=== PATIENT | female | born 1945 | race Caucasian/White ===

== ENCOUNTER → 2016-09-19 | Outpatient (CLI) | payer BC ==
[~2016-09-19] MED LIST: CHOL100010 PO; CLTP PO; CMD1 PO; CRDCD300 PO; CZR50 PO; FRRG PO; MULT-506 PO; OMEG10007 PO
--- NOTE | 2016-09-19 12:46 | MAMMOGRAPHY REPORT ---
BILATERAL DIGITAL SCREENING MAMMOGRAM WITH CAD: 09/19/2016 CLINICAL HISTORY: Routine screening. Patient has no complaints. TECHNIQUE: Current study was also evaluated with a Computer Aided Detection (CAD) system. Bilatera l CC and MLO views were obtained. COMPARISON: Comparison is made to exams dated: 09/16/2015 mammogram, 09/10/2014 mammogram, 09/09/2013 mammogram, 09/07/2011 mammogram, 09/06/2010 mammogram, and 09/08/2012 mammogram - [facility]. BREAST COMPOSITION: There are scattered areas of fibroglandular density in both breasts. FINDINGS: No suspicious masses, calcifications, or areas of architectural distortion are noted in e ither breast. There has been no significant interval change compared to prior exams. Mass with asso ciated coarse calcification in the left upper outer quadrant is stable and compatible with a benign degenerating fibroadenoma. Other scattered bilateral benign appearing calcifications are not signif icantly changed. Small benign appearing masses in the right upper inner quadrant and left lower inn er quadrant are stable. IMPRESSION: ACR BI-RADS CATEGORY 2: BENIGN There is no mammographic evidence of malignancy. A 1 year screening mammogram is recommended. The p atient will receive written notification of the results. Approximately 10% of breast cancers are not detected with mammography. A negative mammographic repor t should not delay biopsy if a clinically suggestive mass is present. Liz Hernandez M.D. ah/:09/19/2016 09:00:59 Parts Salesman: Lara Cardona, [facility] letter sent: Normal 1/2 BI-RADS Code: ACR BI-RADS Category 2: Benign
== END | disposition home or self-care (01) ==
LOC: C.MAMM 08:38
PROVIDERS: ATTEND Obstetrics & Gynecology
DX: Z12.31 Encounter for screening mammogram for malignant neoplasm of breast (principal)

== ENCOUNTER → 2017-03-01 | Outpatient (CLI) | payer BC ==
--- NOTE | 2017-03-01 13:34 | DIAGNOSTIC IMAGING REPORT ---
CHEST 2 VIEWS ROUTINE HISTORY:72 [id number] Cough COMPARISON: Chest CT 10/24/2015, chest radiographs 09/24/2015 TECHNIQUE: Frontal and lateral views of the chest FINDINGS: Cardiomediastinal and hilar silhouettes are within normal limits. There is no pneumothorax, pleural effusion, focal airspace consolidation or overt pulmonary edema. Tortuosity of the descending thoracic aorta is redemonstrated. Endplate degenerative changes are seen throughout the spine. There is convex right curvature of the lower thoracic spine, unchanged. IMPRESSION: No acute cardiopulmonary process. The above report was generated using voice recognition software. It may contain grammatical, syntax or spelling errors. Electronically signed by: Marc Veloz M.D. 03/01/2017 1:33 PM Dictated Date/Time: 03/01/2017 1:32 PM
== END | disposition home or self-care (01) ==
LOC: C.RADBC 12:42
PROVIDERS: ATTEND Physician Assistant
DX: R05 Cough (principal)

== ENCOUNTER → 2017-05-27 | Outpatient (CLI) | payer BC ==
[2017-05-27 14:19] LABS: ALT/SGPT 24 U/L (12-78); BLOOD UREA NITROGEN 19 mg/dl (7-18); BUN/CREATININE RATIO 22.9 (10-20); CALCIUM 9.7 mg/dl (8.5-10.1); CARBON DIOXIDE 28 mmol/L (21-32); CHLORIDE 103 mmol/L (98-107); CREATININE 0.83 mg/dl (0.60-1.20); GLUCOSE 98 mg/dl (70-99); POTASSIUM 4.2 mmol/L (3.5-5.1); SODIUM 140 mmol/L (136-145)
[2017-05-27 15:16] LABS: ALB/GLOB RATIO 0.8 (0.9-2); ALKALINE PHOSPHATASE 72 U/L (45-117); AST/SGOT 19 U/L (15-37); CHOLESTEROL 226 mg/dl (0-200); CHOLESTEROL/HDL RATIO 4.4; HDL CHOLESTEROL 51 mg/dl; LDL CHOLESTEROL CALCULATED 142 mg/dl; THYROID STIMULATING HORMONE 0.773 uIu/ml (0.300-4.500); TRIGLYCERIDES 163 mg/dl (0-150); VERY LOW DENSITY LIPOPROT CALC 33 mg/dl
== END | disposition home or self-care (01) ==
LOC: C.LABBC 10:57
PROVIDERS: ATTEND Physician Assistant Medical
DX: E78.00 Pure hypercholesterolemia, unspecified (principal); I10 Essential (primary) hypertension

== ENCOUNTER → 2017-09-23 | Outpatient (CLI) | payer BC ==
--- NOTE | 2017-09-24 13:29 | MAMMOGRAPHY REPORT ---
BILATERAL DIGITAL SCREENING MAMMOGRAM TOMOSYNTHESIS WITH CAD: 09/23/2017 CLINICAL HISTORY: Routine screening. TECHNIQUE: Breast tomosynthesis in addition to standard 2D mammography was performed. Current study was also evaluated with a Computer Aided Detection (CAD) system. COMPARISON: Comparison is made to exams dated: 09/19/2016 mammogram, 09/16/2015 mammogram, 09/10/2014 ma mmogram, 09/09/2013 mammogram, 09/08/2012 mammogram, and 09/07/2011 mammogram - [facility]ter. BREAST COMPOSITION: There are scattered areas of fibroglandular density in both breasts. FINDINGS: A linear scar marker overlies the lateral left breast, denoting an area of prior surgery. There are stable bilateral circumscribed benign masses. Scattered benign-appearing calcifications. No suspicious mass, architectural distortion or cluster of microcalcifications is seen. IMPRESSION: ACR BI-RADS CATEGORY 1: NEGATIVE There is no mammographic evidence of malignancy. A 1 year screening mammogram is recommended. The pa tient will receive written notification of the results. Approximately 10% of breast cancers are not detected with mammography. A negative mammographic report should not delay biopsy if a clinically suggestive mass is present. Christi Kaur M.D. ay/:09/23/2017 16:04:19 Prosthetic Aides Teacher: Khoa TOUSSAINT)(Lenore), [facility] letter sent: Normal 1/2 BI-RADS Code: ACR BI-RADS Category 1: Negative
== END | disposition home or self-care (01) ==
LOC: C.MAMM 09:53
PROVIDERS: ATTEND Obstetrics & Gynecology
DX: Z12.31 Encounter for screening mammogram for malignant neoplasm of breast (principal)

== ENCOUNTER → 2017-11-13 | Outpatient (CLI) | payer BC | END | disposition home or self-care (01) | LOC: C.LAB1850 11:59 | PROVIDERS: ATTEND Nurse Practitioner Adult Health | DX: J02.9 Acute pharyngitis, unspecified (principal); Z20.818 Contact with and (suspected) exposure to other bacterial communicable diseases ==

== ENCOUNTER → 2018-04-01 | Outpatient (CLI) | payer BC | END | disposition home or self-care (01) | LOC: C.LABBC 10:13 | PROVIDERS: ATTEND Nurse Practitioner Adult Health | DX: R39.15 Urgency of urination (principal); R35.0 Frequency of micturition; R30.9 Painful micturition, unspecified ==

== ENCOUNTER 2021-10-10 10:25 | Observation (INO) ==
--- NOTE | 2021-08-16 12:01 | PAT Medication Instructions ---
Medication Instructions Date of Service August 16, 2021 Home Medications cholecalciferol (vitamin D3) 50 mcg (2,000 unit) capsule 2,000 units PO QAM multivitamin (Multiple Vitamins) 1 tab PO QAM cyclosporine 0.05 % eye drops (Restasis MultiDose) 1 drp OPHTHALMIC (EYE) QAM acetaminophen 500 mg oral powder packet (Tylenol Extra Strength) 1,000 mg PO Q6H PRN meloxicam 7.5 mg tablet 15 mg PO BID omega 3-dez-smu-fish oil 1,200 mg (144 mg-216 mg) capsule (Fish Oil) 1 cap PO QAM telmisartan 40 mg tablet 40 mg PO QAM ASK your surgeon for instructions meloxicam 7.5 mg tablet 15 mg PO BID STOP taking 2 weeks before surgery omega 8-zgv-yfa-fish oil 1,200 mg (144 mg-216 mg) capsule (Fish Oil) 1 cap PO QAM DO NOT take the morning of surgery cholecalciferol (vitamin D3) 50 mcg (2,000 unit) capsule 2,000 units PO QAM multivitamin (Multiple Vitamins) 1 tab PO QAM telmisartan 40 mg tablet 40 mg PO QAM Take morning of surgery With a small sip of water, OTHERWISE NOTHING TO EAT OR DRINK AFTER MIDNIGHT: acetaminophen 500 mg oral powder packet (Tylenol Extra Strength) 1,000 mg PO Q6H PRN(okay to take up to 4 hours prior to surgery if needed). cyclosporine 0.05 % eye drops (Restasis MultiDose) 1 drp OPHTHALMIC (EYE) QAM Take evening before surgery acetaminophen 500 mg oral powder packet (Tylenol Extra Strength) 1,000 mg PO Q6H PRN(if needed) Other Notes If you have any questions please call us at [phone] or [phone] or [phone] or [phone]
--- NOTE | 2021-08-28 13:38 | Anesthesiology Consultation ---
Date of Service August 28, 2021 Assessment & Plan (1) Encounter for pre-operative examination: - AAA in records: listed in PMHx at brain and spine surgery consult note, no additional records or imaging. Optimization note completed to be faxed to PCP, awaiting response. Will discuss standard outpatient joint eligibility with anesthesiologist pending PCP response. - COVID screening: Per assessment on 08/28/2021: Travel screen negative, no known COVID-19 positive contacts or current COVID-19 related symptoms in past 2 weeks. Patient vaccinated. Surgeon arranging preop COVID testing, scheduled 10/06/2021 [facility]. Awaiting results. Chart Review Chart Review: Pending: Refer to Additional Notes / Consult section and Patient seen in Pre Admission Testing Teaching & Discussion Pre-Anesthesia Teaching/Discussion Notes: Instructed NPO after midnight before surgery, except medications with 15 cc of water. Medication instructions provided according to the PAT guidelines. History Surgery Operation Date: 10/10/21 07:00 Proposed Procedures p Right Total Hip Replacement - Tha Francis MD Height/Weight Height: 5 ft 3 in Weight: 112.4 kg Allergies Allergy/AdvReac Type Severity Reaction Status Date / Time atorvastatin [From Lipitor] Allergy Mild myalgias Verified 08/15/21 14:20 simvastatin [From Zocor] Allergy Mild muscle Verified 08/15/21 14:20 aches Medications Home Medications Medication Instructions Recorded Confirmed Last Taken cholecalciferol (vitamin D3) 50 2,000 units PO QAM 02/12/19 08/15/21 03/31/19 06:30 mcg (2,000 unit) capsule multivitamin (Multiple Vitamins) 1 tab PO QAM 02/12/19 08/15/21 04/01/19 07:00 cyclosporine 0.05 % eye drops 1 drp OPHTHALMIC (EYE) QAM 05/25/21 08/15/21 Unknown (Restasis MultiDose) acetaminophen 500 mg oral powder 1,000 mg PO Q6H PRN ea 07/12/21 08/15/21 Unknown packet (Tylenol Extra Strength) meloxicam 7.5 mg tablet 15 mg PO BID tab 07/12/21 08/15/21 Unknown omega 5-avd-rng-fish oil 1,200 mg 1 cap PO QAM 08/15/21 08/15/21 Unknown (144 mg-216 mg) capsule (Fish Oil) telmisartan 40 mg tablet 40 mg PO QAM 08/15/21 08/15/21 Unknown Past Medical History Medical History (Updated 08/28/21 @ 15:36 by Dominique Fontanez PA-C) Benign essential hypertension controlled, stable per pt Diverticulosis denies diverticulitis Hypercholesterolemia Impaired fasting glucose glucose 92 08/2021 pre-op labs Lumbar radiculopathy Lyme disease chronic myalgia Osteoarthritis Postlaminectomy syndrome of lumbosacral region Sacroiliac joint pain Scoliosis Spinal stenosis Patient denies h/o stroke, seizures, heart attack, heart failure, DM, blood clots or blood transfusions. Exercise / Class Metabolic Activity III < 4 Walking/Shop/Light housework (denies CP or SOB) Past Family History Family History Sister Family history of diabetes mellitus Breast cancer Family/Other Family history of diabetes mellitus cousins Father Hypertension Myocardial infarction Brother Prostate cancer X2 Mother Stroke Other No family history of adverse response to anesthesia Denies family history of Ovarian cancer Lung cancer Colorectal cancer Past Surgical History Surgical History (Updated 08/28/21 @ 13:44 by Dominique Fontanez PA-C) History of bilateral tubal ligation History of biopsy on face--persistent erythema after cold sore--bx demonstrated cellulitis--treated with resolution; has standing Valtrex prescription History of bunionectomy of left great toe History of colonoscopy AGE 70 History of laminectomy L4-S1 WITH FUSION END OF FEBRUARY 2020 [facility] History of tooth extraction with dental implant History of total left hip replacement History of total right knee replacement (TKR) Hx of left breast biopsy benign Delgado's neuroma of left foot removed Past Anesthesia History No Hx of Anesthesia Complications and No Family Hx of Anesthesia Complications History of PONV No Hx of PONV and Hx of Motion Sickness Social History Smoking Status: Never smoker Do You Dip or Chew Tobacco: No Hx Alcohol Use: Yes Alcohol type: hard liquor alcohol intake frequency: 0-2 drinks per day Alcohol Intake Frequency Comment: STOPPED DRINKING 06/2021 Hx Substance Use: No substance use type: does not use Review of Systems Patient denies chest pain, shortness of breath, dyspnea on exertion, snoring, witnessed apneas, reflux, fever, chills, cough, wheezing, or palpitations. Physical Exam Vital Signs Vitals BP 124/75 P 95 TEMP 98.3 SP02 96% on RA RESP 17 Physical Full cervical extension range of motion without pain Full TMJ range of motion TMD 3.5 finger breaths Mallampati Score 2 Dentition: intact, one missing tooth right upper back; several implants-right upper side, permanent bridge right lower side; denies chipped or loose teeth Lungs: normal respiratory effort. Clear throughout to auscultation, no adventitious breath sounds Cardiac: regular rate and rhythm, no murmurs noted Carotid arteries: negative bruit bilat Extremities: no distal extremity edema Lab Results Anesthesia Preop Results Results Anesthesia Widget: WBC 5.88 K/uL (4.8-10.8) 08/28/21 Hgb 12.8 g/dL (12.0-16.0) 08/28/21 Hct 39.3 % (37-47) 08/28/21 Plt 187 K/uL (130-400) 08/28/21 Na 138 mmol/L (136-145) 08/28/21 K 4.6 mmol/L (3.5-5.1) 08/28/21 Cl 106 mmol/L (98-107) 08/28/21 CO2 26 mmol/L (21-32) 08/28/21 BUN 22 mg/dl (7-18) H 08/28/21 Creat 0.92 mg/dl (0.6-1.2) 08/28/21 Glucose Level 92 mg/dl (70-99) 08/28/21 PT 9.7 Seconds (9.0-12.0) 08/28/21 PTT 26.2 Seconds (21.0-31.0) 08/28/21 INR 1.0 (0.9-1.1) 08/28/21 Blood Type B Positive 08/28/21 Antibody Screen NEGATIVE 08/28/21 Testing Electrocardiogram Date: 08/25/21 Normal sinus rhythm, rate 88 bpm. Chest X-Ray Date: 08/28/21 No acute cardiopulmonary findings.
--- NOTE | 2021-10-07 11:17 | History and Physical Report ---
DATE OF ADMISSION: 10/10/2021. CHIEF COMPLAINT: Right hip and leg pain. HISTORY OF PRESENT ILLNESS: The patient is a 76-year-old female well known to me from a previous lef t hip replacement done in 2011 and a right knee replacement done in 2009. She comes now with right h ip and leg and groin pain. She has also had a pretty extensive back history and relatively recently had a pretty extensive back fusion done from L3-S1 by her neurosurgeon. This helped her some, but ov er the past year, she developed increased pain and discomfort in her right hip, groin and thigh-high area. Pain has become more disabling. She limps more as the day goes on. X-ray showed advanced hip arthritis. She is having trouble maintaining an active lifestyle. She has been using a cane and a walker to get around as a result. She would like to have her right hip fixed. PAST MEDICAL HISTORY: Includes: 1. Hypertension. 2. Obesity with BMI of 44. 3. Spinal stenosis/scoliosis. 4. Elevated cholesterol. PAST SURGICAL HISTORY: Includes: 1. Bunion surgery. 2. Left hip replacement done on 02/28/2012. 3. Right knee replacement done on 03/31/2010. 4. L3-S1 decompression and fusion 03/17/2020. ALLERGIES: None. CURRENT MEDICATIONS: Include: 1. Telmisartan 40 mg. 2. Multivitamins. 3. Vitamin D. 4. Restasis eye drops. 5. Meloxicam. SOCIAL HISTORY: A 76-year-old female. She is . She is retired. Does not smoke. Occasional alcohol intake. FAMILY HISTORY: Noncontributory. REVIEW OF SYSTEMS: Significant for some obesity. Denies any chest pain or shortness of breath. No history of DVT or PE. No known bleeding problems. PHYSICAL EXAMINATION: GENERAL: Shows a pleasant middle-aged female. Looks to be in reasonably good health. HEENT: Benign. NECK: Supple. No lymphadenopathy. LUNGS: Clear to auscultation. HEART: Regular rate and rhythm. ABDOMEN: Soft, nontender, nondistended. EXTREMITIES: Grossly neurovascularly intact except as follows. Examination of the right hip and leg reveals the patient walks with use of a walker. Leg lengths arnulfo ear pretty equal. She has limited hip motion and pain with any type of hip motion. Internal rotatio n to neutral at best. Negative straight leg raise. No knee effusion. X-RAYS: X-rays of the right hip were reviewed. It shows advanced right hip DJD. She has complete l oss of her superior joint space. Not a lot of osteophyte formation. She has got gnng-lr-csbi diseas e. She has got evidence of the previous lumbar spine surgery as well and some scoliosis above that l evel. ASSESSMENT: A 76-year-old white female with a history of multiple orthopedic procedures in the past including left hip replacement, right knee replacement in pretty extensive spine surgery with persist ent right leg pain consistent with an advanced hip arthritis. She is debilitated by this and would l bob to have this fixed. She has failed conservative measures. PLAN: We will take her to the operating room and do right total hip replacement. The risks and bene fits of this procedure were explained to the patient and include, but not limited to DVT, PE, , infection, neurological injury, vascular injury, bleeding problem, pain, limited range of motion, sti ffness, failure to relieve her symptoms, incomplete relief of symptoms, need for further surgery in t he future, fracture, leg length inequality, nerve palsy, etc. The patient understands and desires to proceed. Informed consent was obtained. With her back surgery, she is at increased risk for instability and dislocation. We will try and max imize her stability with a large head and maybe a little bit more anteversion of the acetabular cup. She will have to hold her meloxicam 10 days preop. She is planning to be [facility]. Job ID: [id number]
[~2021-10-10 10:25] MED LIST changes: +BUPIVACAINE 0.5 % 5 MG/1 ML PF 10ML VIAL ONE; -CHOL100010 PO; -CLTP PO; -CMD1 PO; -CRDCD300 PO; -CZR50 PO; -FRRG PO; +LR 500ML BOLUS, THEN 15ML/HR IV SCH; +LR 60ML/HR IV SCH; -MULT-506 PO; -OMEG10007 PO; +ceFAZolin 2000MG 2,000 MG/15 ML SYR IV SCH
--- NOTE | 2021-10-10 11:34 | History & Physical Bridge Note ---
Date of Service October 10, 2021 History & Physical Bridge Note I have examined the patient, reviewed the History & Physical and in the interval since the performance of the History & Physical I have noted the following changes of clinical significance: no changes noted
[2021-10-10] MEDS ORDERED: METOCLOPRAMIDE HCL 10 MG TABLET ONE (11:50)
[2021-10-10] MEDS ORDERED: ACETAMINOPHEN 500 MG TAB ONE (11:50)
[2021-10-10] MEDS ORDERED: dexAMETHasone 4 MG TAB PO ONE (11:50)
[2021-10-10] MEDS ORDERED: TRANEXAMIC ACID / 0.7% NACL 1000MG/100ML BAG IV ONE (11:50)
[2021-10-10] MEDS ORDERED: BUPIVACAINE 0.5 % 5 MG/1 ML MPF 30ML VIAL ONE (12:02)
[2021-10-10] MEDS ORDERED: EPINEPHrine INJ 1 MG/ML AMP ONE (12:02)
[2021-10-10] MEDS ORDERED: fentaNYL citrate 100 MCG/2 ML VIAL ONE (12:46)
[2021-10-10] MEDS ORDERED: MIDAZOLAM HCL 1 MG/ML 2ML VIAL ONE (12:46)
[2021-10-10] MEDS ORDERED: PROPOFOL IV EMULSION 10 MG/ML 20 ML VIAL IV ONE ×3 (12:46→14:41)
[2021-10-10] MEDS ORDERED: LIDOCAINE 2% 2 ML VIAL/AMP(20MG/ML) INFIL ONE (12:46)
[2021-10-10] MEDS ORDERED: ePHEDrine sulfate 50 MG/ML SYR ONE (12:46)
[2021-10-10] MEDS ORDERED: ATROPINE SULFATE 0.1 MG/ML 10ML SYR IV PRN (12:51)
[2021-10-10] MEDS ORDERED: ONDANSETRON INJ 2 MG/ML 2 ML VIAL IV PRN ×2 (12:51→16:52)
[2021-10-10] MEDS ORDERED: fentaNYL citrate 100 MCG/2 ML VIAL IV PRN (12:51)
[2021-10-10] MEDS ORDERED: ePHEDrine sulfate 50 MG/ML AMP IV PRN (12:51)
[2021-10-10] MEDS ORDERED: PHENYLEPHRINE HCL 10 MG/ML VIAL ONE (14:44)
--- NOTE | 2021-10-10 15:38 | Operative Report ---
PG Post Operative Report Pre & Post Diagnosis Operation Date: 10/10/21 12:30 Pre-Op Diagnosis: Right hip osteoarthritis. Post-Op Diagnosis: Right hip osteoarthritis. I identified the patient and participated in the time-out.: Yes Procedure Operation Date: 10/10/21 12:30 Actual Procedures p Right Total Hip Replacement(Right) - Tha Francis MD Surgeon Tha Francis MD Model Engine Mechanic Obi Farr PA-C Estimated Blood Loss 300 Findings Consistent with Post-Op Diagnosis Operative findings revealed a large soft tissue envelope. She had a grade 4 ekgn-li-gwsp disease with femoral head and acetabulum with flattening of the femoral head. Not much in the way of osteophyte formation. Fluids 1800 cc Specimens Right femoral head sent for pathology. Anesthesia Type Spinal MAC Complications none Disposition Accompanied Patient To Recovery: Yes Indications Patient 76-year-old female has had a long history of hip problems. She underwent a left hip replaced in the past. Over the past several years she developed increased pain discomfort in her right hip. X-rays show progressive hip arthritis. She elected proceed with surgical treatment. Description of Procedure Operative implants consist of: 1. Biomet G7 size 48 mm acetabular shell. 2. 6.5 cancellous acetabular screws 1 of 35 mm in length 1 to 25 mm length. 3. [place] hole commutator v ring assembler. 4. Highly cross-linked polyethylene liner with a 48 mm outer diameter, 32 mm inner diameter with a whitaker placed inferior and posterior. 5. DePuy Corail size 10 KLA short neck femoral stem. 6. +1/32 mm ceramic articular ball. The patient was taken the operating, identified, placed on the operating table supine position protectors were properly padded IV antibiotics tried by anesthesia team. A spinal anesthetic and been implemented holding area. Sloan catheter was placed in sterile fashion. Patient was then placed in the left lateral cubitus position. An axillary roll was placed. A Stulberg hip positioner used for positioning. Right hip and leg were then prepped and draped in usual sterile fashion. A posterior lateral approach to the right hip was then performed to a curvilinear incision centered over the greater trochanter. Sharp dissection was carried through subcutaneous tissue down to the IT band gluteal fascia. She had very thick soft tissue envelope. The IT band gluteal fascia was incised longitudinally in line with skin incision. The underlying greater bursa was excised. The piriformis and external rotators and the posterior hip joint capsule were then released from the posterior aspect hip as a single layer. Hip was internally rotated and dislocated. Femoral neck osteotomy cut was made with Final Cut about a centimeter above the lesser trochanter. The femoral head was removed and sent for pathology. The femur was retracted anteriorly. Attention drawn the acetabulum. The acetabular labrum was excised. The pulmonary fat was excised. Sequential reaming the acetabular was then performed performed again with size 43 and progressing up to 47. We reamed a bit with a 48 reamer and then placed a 48 mm cup in about 40 degrees lateral opening and 20 degrees of anteversion. I worked hard to get this in appropriate version. She had a history of a back fusion as well and we put a little bit more anteversion in the cup to try and account for this. A trial liner was placed. Attention drawn the femur. The proximal femur was entered with a cookie-cutter followed by canal finder. I then broached begin the size 8 and progressed up to 10. Got excellent fit with a 10. I then trialed the hip. We ended up using a short neck to the soft tissue tension. The a +1 articular ball provide full stability in full exte nsion and external rotation flexion to 9 degrees internal rotation over 50 degrees. Leg lengths seemed appropriate and equal. I elect to place these implants. Nupathe all trial implants were removed. An apex hole commutator v ring assembler was placed. Highly cross-linked polyethylene liner with a whitaker placed inferior and posterior was impacted in position. A DePuy size 10 KLA femoral stem was impacted in position. A +1/32 mm ceramic articular ball was placed. Hip was located once again found to be stable. Attention drawn toward closing. The wound was irrigated scope soft pulsatile lavage solution. I did inject locally with 60 cc of absent Marcaine with epinephrine. The posterior capsule and external rotators were then repaired through drill holes in the posterior trochanter as a single layer with #2 Tycron suture. The IT band gluteal fascia were then closed with #1 PDS suture running fashion for subcutaneous tissue was then closed in 3 layers with a deep 2 layers with number acute Vicryl suture in the subcutaneous tissues with 2-0 Dexon suture in a buried interrupted fashion for skin was closed with skin phyllis. A Prevena VAC dressing was then placed over the incision site. The patient was then taken off the table transferred to the recovery room in stable condition. Patient tolerated procedure well no complications. Obi Farr, my physician buyer assistant, was present for the entire procedure. His assistance was essential and required for appropriate patient positioning, prepping and draping, surgical exposure, performing the technical details of the operation, placement the implants, closure of the wound, and placement of the sterile bandage. I attest to the content of the Intraoperative Record and any orders documented therein. Any exceptions are noted below.
--- NOTE | 2021-10-10 16:00 | XRay Report ---
XR hip 1V RT w pelvis HISTORY: 76 years-old Female IN PACU - A/P PELVIS and LATERAL HIP right hip total joint arthroplast y COMPARISON: Hip radiographs 07/06/2021 TECHNIQUE: AP view of the pelvis with crosstable lateral view of the right hip FINDINGS: Left hip total joint arthroplasty with lumbar spinal fusion hardware redemonstrated. Right hip total joint arthroplasty appears to be in satisfactory positioning. No acute fracture, malalignment or unex pected opaque foreign body. Lateral right hip skin phyllis are present along with expected postsurgic al soft tissue swelling and deep tissue air. IMPRESSION: Right hip total joint arthroplasty with expected postoperative findings. ACT 112: Negative or not required by law. The above report was generated using voice recognition software. It may contain grammatical, syntax o r spelling errors. Electronically signed by: Mikel Veloz M.D. 10/10/2021 3:59 PM
--- NOTE | 2021-10-10 16:32 | Anesthesiology Progress Note ---
Date of Service October 10, 2021 Anesthesia Post Procedure Vital Signs Vital Signs: Temp Pulse Pulse Resp BP Pulse Ox 10/10/21 16:30 97 H 19 116/63 96 10/10/21 16:20 36.3 C L 99 H 19 114/75 98 10/10/21 16:10 97 H 17 126/65 98 10/10/21 16:00 99 H 20 117/68 96 10/10/21 15:50 103 H 19 126/77 100 10/10/21 15:40 101 H 22 126/74 100 10/10/21 15:32 36.6 C 104 H 16 121/60 100 10/10/21 10:51 37.0 C 96 H 18 149/73 H 99 Pain Intensity Right Hip: Pain Intensity: 0 Transfer of Care Handoff Completed per policy Notes Mental Status: alert / awake / arousable Patient Amnestic to Procedure: Yes Nausea / Vomiting: adequately controlled Pain: adequately controlled Airway Patency, RR, SpO2: stable & adequate BP & HR: stable & adequate Hydration State: stable & adequate Neuraxial Anesthesia: was administered and sensory block is resolving Anesthetic Complications: no major complications apparent and Pt Satisfied with anesthetic care
[2021-10-10] MEDS ORDERED: NALOXONE HCL 0.4 MG/1 ML VIAL/CARP IV PRN (16:52)
[2021-10-10] MEDS ORDERED: METOCLOPRAMIDE HCL INJ 5 MG/ML 2 ML VIAL IV PRN (16:52)
[2021-10-10] MEDS ORDERED: HYDROmorphone INJ 0.5 MG/0.5 ML SYR IV PRN (16:52)
[2021-10-10] MEDS ORDERED: bisacodyL 10 MG SUPP PR PRN (16:52)
[2021-10-10] MEDS ORDERED: ALUMINUM/MAGNESIUM SUSP 30 ML UDC PO PRN (16:52)
[2021-10-10] MEDS ORDERED: MAGNESIUM HYDROXIDE SUSP 30 ML UDC PO PRN (16:52)
[2021-10-10] MEDS ORDERED: ONDANSETRON 4 MG OD TAB PO PRN (16:58)
[2021-10-10] MEDS: SODIUM CHLORIDE 0.9% 1000ML 1,000 ML IV SCH (17:42)
[2021-10-10] MEDS: ASCORBIC ACID 500 MG TAB PO SCH (18:00)
[2021-10-10] MEDS: KETOROLAC TROMETHAMINE 15 MG/ML VIAL IV SCH (18:01)
--- NOTE | 2021-10-10 19:57 | Progress Notes ---
DATE OF SERVICE: 10/10/2021. SUBJECTIVE: A 76-year-old white female postop from a right hip replacement. She is doing well. Not really having any pain yet. No chest pain or shortness of breath. Not feeling dizzy or lightheaded . OBJECTIVE: VITAL SIGNS: Temperature is 36.3. Vital signs are stable. PHYSICAL EXAMINATION: GENERAL: Shows a pleasant middle-aged female. She is sitting up in bed and talking to her . She looks completely comfortable. She is eating dinner. LUNGS: Clear to auscultation. HEART: Has a regular rate and rhythm. ABDOMEN: Soft, nontender, nondistended. EXTREMITIES: Grossly neurovascularly intact except as follows: Examination of the right leg reveals leg lengths to be equal. Dressing is clean, dry and intact. Her Prevena VAC dressing is in place. Thigh is soft and supple. She is neurologically intact. X-RAYS: X-rays of the right hip from recovery room are reviewed. It shows right uncemented total hi p arthroplasty. Components looked to be in good position. No signs of problems. ASSESSMENT: A 76-year-old white female postoperative from a right hip replacement, doing well. Pain is controlled. Hip is located. She is neurologically intact. PLAN: 1. DVT prophylaxis includes thigh-high TEDs, SCDs, and aspirin twice a day. 2. PT, OT, weightbear as tolerated. Right total hip protocol. 3. Pain control, doing okay with current pain regimen. 4. IV antibiotics x24 hours. 5. Disposition: Plan to discharge to home with some home health hopefully tomorrow if does okay in therapy. Job ID: [id number]
[2021-10-10] MEDS: traMADol HCL 50 MG TABLET PO PRN (20:48)
[2021-10-10] MEDS: ceFAZolin 2000MG 2,000 MG/15 ML SYR IV SCH (20:55)
[2021-10-10] MEDS ORDERED: SENNA 8.6 MG TAB PO SCH (21:00)
[2021-10-10] MEDS: DOCUSATE SODIUM 100 MG CAP PO SCH (21:41)
[2021-10-10] MEDS: ASPIRIN 81 MG ECTAB PO SCH (21:41)
[2021-10-10] MEDS: ACETAMINOPHEN 500 MG TAB PO SCH (21:41)
[2021-10-10] MEDS ORDERED: TRANEXAMIC ACID / 0.7% NACL 1,000 MG/100 ML BAG IV SCH (21:45)
[2021-10-11] MEDS: KETOROLAC TROMETHAMINE 15 MG/ML VIAL IV SCH ×3 (00:01→11:03)
[2021-10-11] MEDS: SODIUM CHLORIDE 0.9% 1000ML 1,000 ML IV SCH (03:35)
[2021-10-11] MEDS: ceFAZolin 2000MG 2,000 MG/15 ML SYR IV SCH (05:20)
[2021-10-11] MEDS: ACETAMINOPHEN 500 MG TAB PO SCH (05:30)
[2021-10-11] MEDS: DOCUSATE SODIUM 100 MG CAP PO SCH (07:37)
[2021-10-11] MEDS: ASPIRIN 81 MG ECTAB PO SCH (07:38)
[2021-10-11] MEDS: ASCORBIC ACID 500 MG TAB PO SCH (07:39)
[2021-10-11] MEDS ORDERED: dexAMETHasone 10 MG in SYRINGE 0 ML IV SCH (08:00)
[2021-10-11 08:27] LABS: Hematocrit (blood only) 32.2 % (37-47); Hemoglobin 10.8 g/dL (12.0-16.0); Immature Granulocytes # (auto) 0.03 K/uL (0.00-0.02); Immature Granulocytes % (auto) 0.3 %; Lymphocytes # (auto) 1.08 K/uL (1.2-3.4); Lymphocytes % (auto) 9.9 %; Mean Corpuscular Hgb Conc 33.5 g/dL (32-36); Mean Corpuscular Volume 89.4 fL (80-100); Mean Platelet Volume 9.4 fL (7.4-10.4); Monocytes # (auto) 0.81 K/uL (0.11-0.59); Monocytes % (auto) 7.4 %; Neutrophils # (auto) 9.02 K/uL (1.4-6.5); Neutrophils % (auto) 82.4 %; Platelet Count 188 K/uL (130-400); RDW Standard Deviation 46.4 fL (36.4-46.3); White Blood Count 10.94 K/uL (4.8-10.8)
[2021-10-11 08:46] LABS: BUN Creatinine Ratio 25.7 (10-20); Calcium 8.7 mg/dl (8.5-10.1); Creatinine Clr Calc Pharmacy 82.3 ml/min; Est GFR (African American) 97.5 ml/min; Est GFR (Non-African American) 84.2 ml/min
[2021-10-11] MEDS ORDERED: TELMISARTAN 40 MG TAB PO SCH (09:00)
[2021-10-11] MEDS ORDERED: OMEGA-3 (PURIFIED FISH OIL) 1 GM CAP PO SCH (09:00)
[2021-10-11] MEDS ORDERED: MULTIVITAMIN TAB PO SCH (09:00)
[2021-10-11] MEDS ORDERED: DOCUSATE SODIUM/SENNA 50/8.6MG TAB PO SCH (09:00)
[2021-10-11] MEDS ORDERED: CHOLECALCIFEROL 1,000 UNITS 25 MCG TAB PO SCH (09:00)
[2021-10-11] MEDS: traMADol HCL 50 MG TABLET PO PRN (10:08)
--- NOTE | 2021-10-11 11:50 | Progress Notes ---
DATE OF SERVICE: 10/11/2021. SUBJECTIVE: A 76-year-old white female postop day 1 from right hip replacement. She is doing quite well. Pain is controlled. She is getting around her room reasonably well. No chest pain or shortne ss of breath. Not feeling dizzy or lightheaded. OBJECTIVE: VITAL SIGNS: Temperature is 36.4. Vital signs are stable. PHYSICAL EXAMINATION: GENERAL: Shows a pleasant middle-aged female. She was walking around her room to the bathroom when I visited her this morning. EXTREMITIES: Examination of the right hip and leg reveals the Prevena VAC to be in place. Leg lengt hs were equal. Large soft tissue envelope. Thigh is soft and supple. She is neurologically intact. LABORATORY DATA: Hemoglobin 10.8. Hematocrit 32.2. Electrolytes are stable. ASSESSMENT: A 76-year-old white female postoperative day 1 from right hip replacement, doing quite w ell. Fairly big operation for this patient. PLAN: 1. DVT prophylaxis includes thigh-high TEDs, SCDs, and aspirin twice a day. 2. PT/OT. She can weight bear as tolerated. Right total hip protocol. 3. Pain control, doing okay with current pain regimen. 4. Disposition: Plan is to discharge her to home with some home health likely later today if she do es okay in therapy. Job ID: [id number]
--- NOTE | 2021-10-16 13:12 | Discharge Summary ---
Date of Service October 16, 2021 Discharge Data Procedures Performed Operation Date: 10/10/21 12:30 Actual Procedures p Right Total Hip Replacement(Right) - Tha Francis MD Hospital Course (1) S/P total right hip arthroplasty: Mckenna is a 76 year old patient admitted on 10/10/21 and underwent total hip arthroplasty. She tolerated the procedure well and there were no comp lications. Transferred to the PACU post op and later to the orthopedic floor for further care. She was given ancef for antibiotic prophylaxis. She was also given LISSETTE stockings, SCDs, and aspirin for DVT prophylaxis. Hemoglobin, hematocrit, and vital signs were monitored during her hospital stay and remained stable. Did not require any blood transfusions. There were no complications during her hosp ital stay. By post op day #1 the patient was tolerating a regular diet, pain was reasonably controlled with oral pain medicine, and she was participating in physical therapy. On post op day #1 the patient was discharged home and set up with home health care. She was given printed discharge instructions and new prescriptions were sent to her pharmacy. Continue physical therapy, weight bearing as tolerated. Continue hip precautions. Continue LISSETTE stockings. Follow up approximately 2 weeks post op or sooner if there are problems or concerns. Coding Level of Care Code None Diagnoses S/P total right hip arthroplasty Z96.641
== END 2021-10-11 14:06 | disposition home health service (06) ==
LOC: 3W 10:25 → ASU 10:25

== ENCOUNTER 2022-03-27 05:25 | Observation (INO) ==
--- NOTE | 2022-03-15 10:48 | Anesthesiology Consultation ---
Date of Service March 15, 2022 Assessment & Plan (1) Encounter for pre-operative examination: - COVID screening: Per assessment on 03/15: No known COVID-19 positive contacts or current COVID-19 related symptoms. Travel screen negative. Patient vaccinated. Surgeon arranging preop COVID testing. Awaiting results. - S/P Right FOSTER (10/10/21): SAB at L3/4 x2 attempts at [facility]. No issues noted per post-op anesthesia progress note. Pt reports that postoperatively she noticed lesion on the right side of tongue that she felt wasn't present prior to surgery- she will be seeing Dr. Valentine 03/22 for further evaluation. Awaiting o ffice visit note. Chart Review Chart Review: Patient NOT seen in Pre Admission Testing History Surgery Operation Date: 03/27/22 11:10 Proposed Procedures p Left Total Knee Arthroplasty - Tha Francis MD Height/Weight Height: 5 ft 3 in Weight: 112.037 kg Allergies Allergy/AdvReac Type Severity Reaction Status Date / Time atorvastatin [From Lipitor] Allergy Mild myalgias Verified 03/15/22 08:52 simvastatin [From Zocor] Allergy Mild muscle Verified 03/15/22 08:52 aches Medications Home Medications Medication Instructions Recorded Confirmed Last Taken cholecalciferol (vitamin D3) 50 2,000 units PO QAM 02/12/19 03/15/22 10/09/21 08:00 mcg (2,000 unit) capsule multivitamin (Multiple Vitamins) 1 tab PO QAM 02/12/19 03/15/22 10/09/21 08:00 cyclosporine 0.05 % eye drops 1 drp ophthalmic (eye) QAM 05/25/21 03/15/22 10/10/21 08:00 (Restasis MultiDose) omega 1-hps-smo-fish oil 1,200 mg 1 cap PO QAM 08/15/21 03/15/22 09/28/21 (144 mg-216 mg) capsule (Fish Oil) telmisartan 40 mg tablet (Micardis) 40 mg PO QAM #90 tabs 01/08/22 03/15/22 Unknown acetaminophen 500 mg tablet 1,000 mg PO Q6H PRN Pain 03/15/22 03/15/22 Unknown (Acetaminophen Extra Strength) amoxicillin 500 mg tablet 2,000 mg PO UD 03/15/22 03/15/22 Unknown ibuprofen 200 mg tablet 800 mg PO Q6H PRN Pain 03/15/22 03/15/22 Unknown Past Medical History Medical History Benign essential hypertension Controlled Diverticulosis Hypercholesterolemia Diet controlled Lyme disease Chronic myalgia Morbid obesity Osteoarthritis Scoliosis Spinal stenosis Past Family History Family History Sister Family history of diabetes mellitus Breast cancer Family/Other Family history of diabetes mellitus cousins Father Hypertension Myocardial infarction Brother Prostate cancer X2 Mother Stroke Other No family history of adverse response to anesthesia Denies family history of Ovarian cancer Lung cancer Colorectal cancer Past Surgical History Surgical History H/O bilateral hip replacements Right FOSETR (10/10/21): SAB at L3/4 x2 attempts at [facility]. No issues noted per post-op anesthesia progress note. Pt reports that postoperatively she noticed lesion on the right side of tongue that she felt wasn't present prior to surgery- she will be seeing Dr. Valentine 03/22 for further evaluation. History of bilateral tubal ligation History of biopsy Facial (persistent erythema after cold sore-- bx demonstrated cellulitis > treated with resolution; has standing Valtrex prescription) History of bunionectomy of left great toe History of colonoscopy History of laminectomy L4-S1 fusion (2019; ) History of tooth extraction + dental implant Hx of left breast biopsy benign Delgado's neuroma of left foot removal Status post right knee replacement Social History Smoking Status: Never smoker Do You Dip or Chew Tobacco: No Hx Alcohol Use: Yes Alcohol type: hard liquor alcohol intake frequency: 0-2 drinks per day Hx Substance Use: No substance use type: does not use Lab Results Anesthesia Preop Results Results Anesthesia Widget: WBC 5.46 K/ul (4.8-10.8) 03/14/22 Hgb 11.5 g/dl (12.0-16.0) L 03/14/22 Hct 36.0 % (34.1-44.9) 03/14/22 Plt 196 K/uL (130-400) 03/14/22 Na 138 mmol/L (136-145) 03/14/22 K 4.4 mmol/L (3.5-5.1) 03/14/22 Cl 105 mmol/L (98-107) 03/14/22 CO2 25 mmol/L (21-32) 03/14/22 BUN 18 mg/dl (6-23) 03/14/22 Creat 0.80 mg/dl (0.6-1.2) 03/14/22 Glucose Level 108 mg/dl (70-99(Fasting)) H 03/14/22 PT 10.3 Seconds (9.0-12.0) 03/14/22 PTT 25.5 Seconds (21.0-31.0) 03/14/22 INR 1.0 (0.9-1.1) 03/14/22 Blood Type B Positive 03/14/22 Antibody Screen NEGATIVE 03/14/22 Testing Electrocardiogram Date: 02/27/22 Findings: + NSR @ (94) Chest X-Ray Date: 02/27/22 Findings: + NAD
[2022-03-27] MEDS ORDERED: ceFAZolin 2000MG 2,000 MG/15 ML SYR IV SCH (06:00)
[2022-03-27] MEDS ORDERED: TRANEXAMIC ACID 1,000 MG **IV Intra-op IV SCH (06:00)
[2022-03-27] MEDS ORDERED: BUPIVACAINE LIPOSOME/PF 266 MG, BUPIVACAINE/EPINEPHRINE 50 ML, SODIUM CHLORIDE 0.9% 30 ... INFIL SCH (06:00)
[2022-03-27] MEDS ORDERED: LR 60ML/HR IV SCH (06:00)
[2022-03-27] MEDS ORDERED: METOCLOPRAMIDE HCL 10 MG TABLET PO SCH (06:00)
[2022-03-27] MEDS ORDERED: FAMOTIDINE 20 MG TAB PO SCH (06:00)
[2022-03-27] MEDS ORDERED: ACETAMINOPHEN 500 MG TAB PO SCH (06:00)
[2022-03-27] MEDS ORDERED: CeleBREX 200 MG CAP PO SCH (06:00)
[2022-03-27] MEDS ORDERED: LR 500ML BOLUS, THEN 15ML/HR IV SCH (06:00)
[2022-03-27] MEDS ORDERED: MIDAZOLAM HCL 1 MG/ML 2ML VIAL ONE ×2 (06:24→06:25)
[2022-03-27] MEDS ORDERED: fentaNYL citrate 100 MCG/2 ML VIAL ONE (06:25)
[2022-03-27] MEDS ORDERED: EPINEPHrine INJ 1 MG/ML AMP ONE (06:27)
[2022-03-27] MEDS ORDERED: BUPIVACAINE 0.5 % 5 MG/1 ML PF 10ML VIAL ONE (06:27)
[2022-03-27] MEDS ORDERED: ROPIVACAINE 0.5% 5 MG/ML 30 ML VIAL ONE (06:27)
[2022-03-27] MEDS ORDERED: SODIUM CHLORIDE 0.9% PF 50 ML VIAL ONE (06:36)
[2022-03-27] MEDS ORDERED: BUPIVACAINE/EPINEPHRINE 0.25% 1:200,000 30 ML VIAL ONE (06:36)
[2022-03-27] MEDS ORDERED: BUPIVACAINE LIPOSOME 1.3% 266 MG/20 ML VIAL ONE (06:36)
--- NOTE | 2022-03-27 06:53 | History & Physical Bridge Note ---
Date of Service March 27, 2022 History & Physical Bridge Note I have examined the patient, reviewed the History & Physical and in the interval since the performance of the History & Physical I have noted the following changes of clinical significance: no changes noted
[2022-03-27] MEDS ORDERED: PROPOFOL IV EMULSION 10 MG/ML 20 ML VIAL IV ONE (07:15)
[2022-03-27] MEDS ORDERED: ePHEDrine sulfate 50 MG/ML SYR ONE (07:15)
[2022-03-27] MEDS ORDERED: PHENYLEPHRINE 100MCG/ML 5ML SYR ONE (07:15)
--- NOTE | 2022-03-27 09:01 | Operative Report ---
PG Post Operative Report Pre & Post Diagnosis Operation Date: 03/27/22 07:00 Pre-Op Diagnosis: Left Knee Advanced Degenerative Joint Disease Post-Op Diagnosis: Left Knee Advanced Degenerative Joint Disease I identified the patient and participated in the time-out.: Yes Procedure Operation Date: 03/27/22 07:00 Actual Procedures p Left Total Knee Arthroplasty(Left) - Tha Francis MD Surgeon Tha Francis MD Pipe Organ Mechanic Obi Farr PA-C Estimated Blood Loss 50 Findings Consistent with Post-Op Diagnosis Operative findings real advanced left knee DJD. She had extensive grade 4 changes of the medial and patellofemoral compartments. She had some spotty grade 4 changes laterally. Varus deformity to her knee. Moderate soft tissue envelope. Moderate-sized knee effusion. Fluids 1300 cc Specimens Left knee sent for pathology. Drains None Anesthesia Type Spinal MAC Complications none Disposition Accompanied Patient To Recovery: No Indications Patient is 77-year-old female has had a long history of multiple joint problems. She had both hips replaced in the right knee in the past. Over the past s everal years she developed increased pain discomfort in her left knee. She failed conservative measures. She elected proceed with total knee arthroplasty. Description of Procedure Operative implants consist of: 1. Biomet Vanguard size 60 left posterior stabilized femoral component. 2. Biomet size 67 tibial tray. 3. 10 mm posterior stabilized polyethylene insert. 4. 28 x 8 all Paller patella. The patient was taken the operating, identified, placed on the operating table supine position protectors were properly padded. IV antibiotics tried by anesthesia team. A spinal anesthetic and abductor canal block had provided in holding area. Sloan catheter was placed in sterile fashion. Left thigh tent was then placed in the left lower extremities then prepped and draped in usual sterile fashion. The left leg was elevated and exsanguinated with use of an Esmarch in terms playset 3 mmHg. An anterior approach left knee was then performed to longitudinal incision centered over the patella. Sharp dissection Through subcutaneous tissues down the extensor mechanism. A medial parapatellar arthrotomy incision was made. Some subperiosteal dissection was carried out medially. The fat pad was resected from Neath patella tendon. Lateral patellofemoral ligament was released. Patella subluxated laterally and the knee was flexed. The osteophytes were taken off distal femur. The ACL and PCL were then released from distal femur the tibia subluxated anteriorly. The external treatment line jig was then placed in the interface the tibia and adjusted 14 mm medially. Proximal tibial cut was made remove about 2 mm of bone from the medial side. Some osteophytes were taken off medial and posterior medially. The tibia sized to a size 67. Attention drawn the femur. The distal femur was entered with a sharp drop with intramedullary canal was suction. A left 5 degree valgus cutting guide was placed. Distal femoral cutting block was pinned in place. Distal femoral cut was made to take an additional 3 mm bone off distal femur. The femur was then sized to a size 60. The AP cutting block was pinned parallel to the epicondylar axis which was 4 degrees of external rotation. Of note, the femur sized to exactly a 60. The anterior cut, anterior chamfer, posterior cut, posterior chamfer cuts were made. The box cutting guide was placed in just slight lateral and the box cut was made. The knee was flexed. The remnants of the medial and lateral menisci were excised. The osteophytes were taken off the posterior aspect of the femur. A trial femoral component was placed. The tibial tray was pinned in maximum external rotation and the drill and stem punch were used to create defect in proximal tibia for the tibial tray. The knee was then trialed and the 10 mm insert fit most appropriately. Attention drawn the patella. The patella was cleaned of all soft tissues. Patella thickness measured 18 mm in thickness was cut down to 12. Was sized to a size 28 patella. The lug holes were drilled for the 28 patella. The lateral osteophyte is moved. Patella button was placed. Knee was taken through range of motion and the patella tracked nicely with no thumbs test. Attention drawn to place the permanent components. Nupathe all trial components were removed. Bone plug was placed in the distal femur limit blood loss. A double batch Palacos G cement was mixed. Biomet Vanguard size 60 left posterior stabilized femoral component, a size 67 tibial tray, 10 mm posterior stabilized polyethylene insert, and a 28 x 8 all Paller patella then cemented in place. New spreadout into full extension until cement hardened. Final cement check was then performed. Pericapsular tissues were injected with total 100 cc of combination of 20 cc of Exparel, 30 cc normal saline, 50 cc of quarter percent Marcaine with epinephrine. Patient did receive 1 g tranexamic acid. The tourniquet was then let down for final turn time 55 minutes. Hemostasis assured use electrocautery. Extensor mechanism closed with combination 1 PDS suture #1 Vicryl suture in [id number] fashion. Extensor mechanism checked found to be intact with subcutaneous tissue then closed with 2 Dexon suture in a buried interrupted fashion skin was closed skin phyllis. Leg was then cleaned and dried and a sterile dressing was Xeroform, 4 x 4's, sterile cast padding, Frankie bandage were applied. Patient then transferred to the recovery room in stable condition. Patient tolerated procedure well and there were no complications. Obi Farr, my physician child life assistant, was present for the entire procedure. His assistance was essential and required for appropriate patient positioning, prepping and draping, surgical exposure, performing the technical details of the operation, placement the implants, closure of the wound, and placement of the sterile bandage. I attest to the content of the Intraoperative Record and any orders documented therein. Any exceptions are noted below.
--- NOTE | 2022-03-27 09:15 | XRay Report ---
XR knee LT 1 or 2V routine CLINICAL HISTORY: Surgical Post Op TECHNIQUE: 2 views of the left knee were obtained. Comparison: Comparison is made to knee radiographs 02/22/2010 FINDINGS: Patient is status post total knee arthroplasty with expected postsurgical changes including soft tiss ue swelling and subcutaneous emphysema. No periarticular lucency or hardware fracture is seen. IMPRESSION: Expected postoperative appearance status post placement of total knee arthroplasty. ACT 112: Negative or not required by law. Electronically signed by: Donell Dang M.D. 03/27/2022 9:13 AM
--- NOTE | 2022-03-27 09:39 | Anesthesiology Progress Note ---
Date of Service March 27, 2022 Anesthesia Post Procedure Vital Signs Vital Signs: Temp Pulse Resp BP Pulse Ox O2 Del Method O2 Flow Rate 03/27/22 09:30 103 H 18 102/53 L 93 Room Air 03/27/22 09:20 105 H 16 113/63 94 Room Air 03/27/22 09:10 106 H 16 96/52 L 99 Room Air 03/27/22 09:00 105 H 20 97/60 L 100 Oxymask 8 03/27/22 08:50 36.8 C 110 H 14 96/76 L 96 Oxymask 8 03/27/22 06:02 36.6 C 106 H 20 160/88 H 94 Room Air Transfer of Care Handoff Completed per policy Notes Mental Status: alert / awake / arousable Patient Amnestic to Procedure: Yes Nausea / Vomiting: adequately controlled Pain: adequately controlled Airway Patency, RR, SpO2: stable & adequate BP & HR: stable & adequate Hydration State: stable & adequate Neuraxial Anesthesia: was administered and sensory block is resolving Anesthetic Complications: no major complications apparent
[2022-03-27] MEDS ORDERED: METOCLOPRAMIDE HCL INJ 5 MG/ML 2 ML VIAL IV PRN (10:13)
[2022-03-27] MEDS ORDERED: ALUMINUM/MAGNESIUM SUSP 30 ML UDC PO PRN (10:13)
[2022-03-27] MEDS ORDERED: NALOXONE HCL 0.4 MG/1 ML VIAL/CARP IV PRN (10:13)
[2022-03-27] MEDS ORDERED: bisacodyL 10 MG SUPP PR PRN (10:13)
[2022-03-27] MEDS ORDERED: MAGNESIUM HYDROXIDE SUSP 30 ML UDC PO PRN (10:13)
[2022-03-27] MEDS ORDERED: ONDANSETRON INJ 2 MG/ML 2 ML VIAL IV PRN (10:13)
[2022-03-27] MEDS: SODIUM CHLORIDE 0.9% 1000ML 1,000 ML IV SCH ×2 (10:42→20:30)
[2022-03-27] MEDS: traMADol HCL 50 MG TABLET PO PRN ×2 (10:42→20:26)
[2022-03-27] MEDS ORDERED: DOCUSATE SODIUM/SENNA 50/8.6MG TAB PO SCH (11:00)
[2022-03-27] MEDS: HYDROmorphone INJ 0.5 MG/0.5 ML SYR IV PRN (11:34)
[2022-03-27] MEDS: ASPIRIN 81 MG ECTAB PO SCH ×2 (11:34→20:27)
[2022-03-27] MEDS: DOCUSATE SODIUM 100 MG CAP PO SCH ×2 (11:35→20:27)
[2022-03-27] MEDS: CHOLECALCIFEROL 1,000 UNITS 25 MCG TAB PO SCH (11:35)
[2022-03-27] MEDS: MULTIVITAMIN TAB PO SCH (11:35)
[2022-03-27] MEDS: KETOROLAC TROMETHAMINE 15 MG/ML VIAL IV SCH ×2 (11:57→17:18)
[2022-03-27] MEDS: TELMISARTAN 40 MG TAB PO SCH (11:57)
[2022-03-27] MEDS: OMEGA-3 (PURIFIED FISH OIL) 1 GM CAP PO SCH (11:57)
[2022-03-27] MEDS: ACETAMINOPHEN 500 MG TAB PO SCH ×2 (14:29→22:29)
[2022-03-27] MEDS: ceFAZolin 2000MG 2,000 MG/15 ML SYR IV SCH ×2 (14:29→22:31)
[2022-03-27] MEDS ORDERED: TRANEXAMIC ACID / 0.7% NACL 1,000 MG/100 ML BAG IV SCH (15:00)
[2022-03-27] MEDS: ASCORBIC ACID 500 MG TAB PO SCH (17:19)
[2022-03-27] MEDS: SENNA 8.6 MG TAB PO SCH (20:28)
[2022-03-28] MEDS: KETOROLAC TROMETHAMINE 15 MG/ML VIAL IV SCH ×4 (00:43→17:13)
[2022-03-28] MEDS: ACETAMINOPHEN 500 MG TAB PO SCH ×3 (05:12→21:52)
[2022-03-28] MEDS: traMADol HCL 50 MG TABLET PO PRN (05:23)
[2022-03-28] MEDS ORDERED: dexAMETHasone 10 MG in SYRINGE 0 ML IV SCH (08:00)
[2022-03-28] MEDS: HYDROmorphone INJ 0.5 MG/0.5 ML SYR IV PRN ×3 (08:37→21:59)
[2022-03-28] MEDS: ASCORBIC ACID 500 MG TAB PO SCH ×2 (08:39→17:13)
[2022-03-28] MEDS: ASPIRIN 81 MG ECTAB PO SCH ×2 (08:40→20:44)
[2022-03-28] MEDS: CHOLECALCIFEROL 1,000 UNITS 25 MCG TAB PO SCH (08:40)
[2022-03-28] MEDS: MULTIVITAMIN TAB PO SCH (08:41)
[2022-03-28] MEDS: DOCUSATE SODIUM 100 MG CAP PO SCH ×2 (08:41→20:45)
[2022-03-28] MEDS: OMEGA-3 (PURIFIED FISH OIL) 1 GM CAP PO SCH (08:41)
[2022-03-28] MEDS: TELMISARTAN 40 MG TAB PO SCH (08:41)
[2022-03-28 09:07] LABS: Hematocrit (blood only) 32.6 % (34.1-44.9); Hemoglobin 10.6 g/dl (12.0-16.0); Mean Corpuscular Hemoglobin 28.3 pg (25.0-34.0); Mean Corpuscular Hgb Conc 32.5 g/dL (32.0-36.0); Mean Corpuscular Volume 87.2 fL (80.0-100.0); Mean Platelet Volume 9.5 fL (9.4-12.3); Platelet Count 152 K/uL (130-400); RDW Coefficient of Variation 14.9 % (11.5-14.5); RDW Standard Deviation 47.8 fL (36.4-46.3); Red Blood Count 3.74 M/uL (3.93-5.22); White Blood Count 5.71 K/ul (4.8-10.8)
[2022-03-28 09:26] LABS: BUN Creatinine Ratio 18.9 (10-20); Calcium 8.6 mg/dl (8.5-10.1); Est GFR (African American) 90.6 ml/min; Est GFR (Non-African American) 78.1 ml/min; Potassium 4.1 mmol/L (3.5-5.1)
--- NOTE | 2022-03-28 11:43 | Progress Notes ---
DATE OF SERVICE: 03/28/2022. SUBJECTIVE: A 77-year-old white female postoperative day 1 from a left knee replacement. Had a pret ty rough night, but doing better this morning. Pain is the main issue. No chest pain or shortness o f breath. Not feeling dizzy or lightheaded. Just knee pain. OBJECTIVE: VITAL SIGNS: Temperature 36.6. Vital signs are stable. A little hypertensive. PHYSICAL EXAMINATION: GENERAL: Shows a pleasant, elderly female. She is sitting up in bed and looks reasonably comfortabl e currently. LUNGS: Clear to auscultation. HEART: Regular rate and rhythm. ABDOMEN: Soft, nontender, nondistended. EXTREMITIES: Grossly neurovascularly intact except as follows: Examination of the left leg reveals the dressing to be clean, dry and intact. Leg is well aligned. She can dorsiflex and plantarflex her foot appropriately. She is neurologically intact. LABORATORY DATA: Hemoglobin 10.6. Hematocrit 32.6. Electrolytes are stable. ASSESSMENT: A 77-year-old white female postoperative day 1 from left knee replacement, doing okay. Quite a bit of pain last night, which is not unexpected. She seems to be doing better this morning. PLAN: 1. DVT prophylaxis includes thigh-high TEDs, SCDs, and aspirin twice a day. 2. PT, OT, weightbear as tolerated. Left total knee protocol. 3. Pain control, doing okay with current pain regimen. We may need to adjust her medicines as time goes on. We will see how she does in therapy today. 4. Disposition: She is planning to be discharged to home with some home health once adequately immo bilized, gets through therapy, and pain is adequately controlled. Job ID: [id number]
[2022-03-28] MEDS: SENNA 8.6 MG TAB PO SCH (20:45)
[2022-03-29] MEDS: KETOROLAC TROMETHAMINE 15 MG/ML VIAL IV SCH ×2 (00:41→06:12)
[2022-03-29] MEDS: ACETAMINOPHEN 500 MG TAB PO SCH (06:13)
--- NOTE | 2022-03-29 08:07 | Progress Notes ---
DATE OF SERVICE: 03/29/2022. SUBJECTIVE: A 77-year-old white female postop day 2 from a left knee replacement. Doing much better this morning. Pain is better controlled. Had a better night sleep. No chest pain or shortness of breath. Not feeling dizzy or lightheaded. OBJECTIVE: VITAL SIGNS: Temperature is 36.7. Vital signs are stable. PHYSICAL EXAMINATION: GENERAL: Shows a pleasant middle-aged female. She is sitting up in bed, looks much more comfortable this morning. EXTREMITIES: Examination of the left leg reveals the dressing to be clean, dry and intact. No signi ficant drainage. She can dorsiflex and plantarflex her foot appropriately. She is neurologically in tact. ASSESSMENT: A 77-year-old white female postoperative day 2 from a left knee replacement, doing well. Doing much better this morning. Her pain is better controlled. Had a good night last night. PLAN: 1. DVT prophylaxis includes thigh-high TEDs, SCDs, and aspirin twice a day. 2. PT, OT, weightbear as tolerated. Left total knee protocol. 3. Pain control, doing okay with current pain regimen. 4. Disposition: Plan to discharge to home with some home health later today. Job ID: [id number]
[2022-03-29] MEDS: DOCUSATE SODIUM 100 MG CAP PO SCH (08:24)
[2022-03-29] MEDS: ASPIRIN 81 MG ECTAB PO SCH (08:25)
[2022-03-29] MEDS: ASCORBIC ACID 500 MG TAB PO SCH (08:25)
[2022-03-29] MEDS: TELMISARTAN 40 MG TAB PO SCH (08:25)
[2022-03-29] MEDS: MULTIVITAMIN TAB PO SCH (08:25)
[2022-03-29] MEDS: OMEGA-3 (PURIFIED FISH OIL) 1 GM CAP PO SCH (08:25)
[2022-03-29] MEDS: CHOLECALCIFEROL 1,000 UNITS 25 MCG TAB PO SCH (08:25)
[2022-03-29] MEDS: traMADol HCL 50 MG TABLET PO PRN (08:27)
--- NOTE | 2022-04-01 12:12 | Discharge Summary ---
Date of Service April 01, 2022 Discharge Data Procedures Performed Operation Date: 03/27/22 07:00 Actual Procedures p Left Total Knee Arthroplasty(Left) - Tha Francis MD Hospital Course (1) Status post total left knee replacement: This is a 77 year old patient admitted on 03/27/22 and underwent total knee arthroplasty. She tolerated the procedure well and there were no complications. Transferred to the PACU post op and later to the orthopedic floor for further care. She was given ancef for antibiotic prophylaxis. She was also given LISSETTE stockings, SCDs, and aspirin for DVT prophylaxis. Hemoglobin, hematocrit, and vital signs were monitored during her hospital stay and remained stable. Did not require any blood transfusions. There were no complications during her hospital stay. By post op day #2 the patient was tolerating a regular diet, pain was reasonably controlled with oral pain medicine, and she was participating in physical therapy. On post op day #2 the patient was discharged home and set up with home health care. She was given printed discharge instructions including prescriptions for extra strength tylenol, aspirin, toradol, zofran, senokot, and tramadol. Continue physical therapy, weight bearing as tolerated. Continue LISSETTE stockings. Follow up approximately 2 weeks post op or sooner if there are problems or concerns. Coding Level of Care Code None Diagnoses Status post total left knee replacement Z96.652
== END 2022-03-29 11:25 | disposition home health service (06) ==
LOC: 3E 05:25 → ASU 05:25
DX: Z80.42 Family history of malignant neoplasm of prostate; Z82.49 Family history of ischemic heart disease and other diseases of the circulatory system; Z79.82 Long term (current) use of aspirin; Z83.3 Family history of diabetes mellitus; Z68.42 Body mass index [BMI] 45.0-49.9, adult; Z88.8 Allergy status to other drugs, medicaments and biological substances; E66.01 Morbid (severe) obesity due to excess calories; M17.12 Unilateral primary osteoarthritis, left knee; Z80.3 Family history of malignant neoplasm of breast; Z79.899 Other long term (current) drug therapy; Z82.3 Family history of stroke; Z96.643 Presence of artificial hip joint, bilateral; Z96.651 Presence of right artificial knee joint